=== PATIENT | female | born 1940 | race African-American/Black ===

== ENCOUNTER 2019-07-10 02:37 | Emergency (ER) | payer OTHER ==
[~2019-07-10] VITALS: Ht 170.2 cm; Wt 71.0 kg
[2019-07-10] MEDS ORDERED: FUROSEMIDE 40MG/4ML VIAL IV ONE (03:30)
[2019-07-10] MEDS ORDERED: NITROGLYCERIN OINT 1GM/INCH UDPKT TD ONE (03:30)
[2019-07-10 03:44] LABS: CHLORIDE 109 mEq/L (98-107)
[2019-07-10 03:47] LABS: BASOPHILS % 0.9 % (0.0-2.0); HEMATOCRIT. 45.6 % (36.0-48.0); HEMOGLOBIN. 14.7 g/dL (12.0-16.0); LYMPHOCYTES % 26.8 % (20.0-50.0); MEAN CORPUSCULAR HEMOGLOBIN 27.2 pg (28.0-32.0); MEAN CORPUSCULAR VOLUME 84.6 fL (81.0-99.0); MEAN PLATELET VOLUME 8.2 fl (7.4-10.4); NEUTROPHILS % 64.3 % (40.0-76.0); PLATELET 284 x1000/uL (130-400); RED BLOOD CELL COUNT 5.39 mill/uL (4.2-5.4); RED CELL DISTRIBUTION WIDTH 15.6 % (11.6-14.6)
[2019-07-10 09:18] VITALS: BP 131/113
== END 2019-07-10 09:45 | disposition short-term general hospital (02) ==
LOC: ER 02:37 → EDBD 02:37 → ER 09:45
DX: I11.0 Hypertensive heart disease with heart failure (principal); I50.9 Heart failure, unspecified; I48.91 Unspecified atrial fibrillation; Z79.01 Long term (current) use of anticoagulants; Z88.3 Allergy status to other anti-infective agents; Z88.2 Allergy status to sulfonamides; Z88.8 Allergy status to other drugs, medicaments and biological substances
CPT/HCPCS: 36415; 71045; 80053; 83880; 84484; 85025; 93005; 96374; 99285; C1893; J1940

== ENCOUNTER 2020-10-03 05:35 | Inpatient (IN) | payer MEDICARE, OTHER ==
[~2020-10-03] VITALS: Ht 167.6 cm; Wt 68.0 kg
[2020-10-03] VITALS (54 sets, daily range): BP systolic 104–197; BP diastolic 19–131
[2020-10-03 06:10] LABS: CHLORIDE 105 mEq/L (98-107)
[2020-10-03] MEDS ORDERED: AZITHROMYCIN 500 MG in DEXT 5% WATER 250 ML IV ONE (06:15)
[2020-10-03] MEDS ORDERED: PIPERACILLIN/TAZ 3.375G PREMIX 50 ML IV ONE (06:15)
[2020-10-03] MEDS ORDERED: VANCOMYCIN 1 G PREMIX 200 ML IV ONE (06:15)
[2020-10-03] MEDS ORDERED: FUROSEMIDE 20MG/2ML VIAL IVP ONE (06:15)
[2020-10-03 06:18] LABS: BASOPHILS % 0.7 % (0.0-2.0); EOSINOPHILS % 1.8 % (0.0-5.0); HEMATOCRIT. 43.9 % (36.0-48.0); HEMOGLOBIN. 14.4 g/dL (12.0-16.0); LYMPHOCYTES % 30.2 % (20.0-50.0); MEAN CORPUSCULAR HEMOGLOBIN 28.8 pg (28.0-32.0); MEAN CORPUSCULAR VOLUME 87.5 fL (81.0-99.0); MEAN PLATELET VOLUME 8.1 fl (7.4-10.4); MONOCYTES % 6.8 % (2.0-8.0); NEUTROPHILS % 60.5 % (40.0-76.0); PLATELET 246 x1000/uL (130-400); RED BLOOD CELL COUNT 5.02 mill/uL (4.2-5.4)
[2020-10-03] MEDS ORDERED: DOCUSATE SODIUM 100MG CAPSULE PO PRN (08:45)
[2020-10-03] MEDS ORDERED: NITROGLYCERIN 0.4MG TABLET SL SL PRN (08:45)
[2020-10-03] MEDS ORDERED: ONDANSETRON HCL 4MG/2ML INJ IV PRN (08:45)
[2020-10-03] MEDS ORDERED: ACETAMINOPHEN 325MG TABLET PO PRN (08:45)
[2020-10-03] MEDS ORDERED: TRAMADOL 50MG TABLET PO PRN (08:45)
[2020-10-03] MEDS ORDERED: GUAIFENESIN 200MG/10ML SUGAR FREE UDC PO PRN (08:45)
[2020-10-03] MEDS ORDERED: MAGNESIUM/ALUMINUM HYDROXIDE/SIMETHICONE 30ML UDC PO PRN (08:45)
[2020-10-03] MEDS ORDERED: CLONIDINE 0.1MG TABLET PO PRN (08:45)
[2020-10-03] MEDS ORDERED: IPRATROPIUM/ALBUTEROL 0.5-3(2.5)MG/3ML NEB NEB PRN (08:45)
[2020-10-03] MEDS ORDERED: SPIRONOLACTONE 25MG TABLET PO SCH (09:00)
[2020-10-03] MEDS: FAMOTIDINE 20MG TABLET PO SCH (09:26)
[2020-10-03] MEDS: FUROSEMIDE 40MG/4ML VIAL IVP SCH ×2 (09:26→21:18)
[2020-10-03] MEDS: ZINC SULFATE 220 MG ( 50 ) CAPSULE PO SCH (09:26)
[2020-10-03] MEDS: ASCORBIC ACID 500 MG TABLET PO SCH ×2 (09:26→21:18)
[2020-10-03] MEDS: ASPIRIN 81MG EC TABLET PO SCH (09:26)
[2020-10-03] MEDS: APIXABAN 5 MG TABLET PO SCH ×2 (09:41→21:18)
[2020-10-03] MEDS: CHOLECALCIFEROL (D3) 1000 UNIT TABLET PO SCH (09:42)
[2020-10-03 10:51] LABS: *AMPHETAMINES SCREEN URINE NEGATIVE (NEGATIVE); *BARBITURATES SCREEN URINE NEGATIVE (NEGATIVE); *BENZODIAZEPINES SCREEN URINE NEGATIVE (NEGATIVE); *COCAINE SCREEN URINE NEGATIVE (NEGATIVE); METHADONE URINE SCREEN NEGATIVE (NEGATIVE)
[2020-10-03 10:52] LABS: CANNABINOID URINE SCREEN NEGATIVE (NEGATIVE); OPIATES URINE SCREEN NEGATIVE (NEGATIVE); PHENCYCLIDINE URINE SCREEN NEGATIVE (NEGATIVE)
[2020-10-03] MEDS ORDERED: CEFTRIAXONE 1 G PREMIX 50 ML IV SCH (11:00)
[2020-10-03 11:27] LABS: T4 FREE 0.95 ng/dL (0.76-1.46)
[2020-10-03] MEDS: DILTIAZEM HCL 60MG TABLET PO SCH ×3 (11:32→23:57)
[2020-10-03] MEDS: NITROGLYCERIN OINT 1GM/INCH UDPKT TD SCH ×3 (11:39→21:18)
[2020-10-03 11:42] LABS: FOLIC ACID (FOLATE) SERUM >20 ng/mL ng/mL (>5.38)
[2020-10-03 11:46] LABS: BG BASE EXCESS -1.5 mmol/L (-2.0-2.0); BG DEOXYHEMOGLOBIN 5.9 % (0.0-5.0); BG FRACTION INSPIRED OXYGEN 70; BG HCO3 ACT 22.3 mmol/L (22.0-26.0); BG METHEMOGLOBIN 0.1 % (0.0-1.5); BG OXYGEN SATURATION 94.1 % (92.0-98.5); BG PCO2 35.1 mmHg (35.0-45.0); BG PO2 68.6 mmHg (75.0-100.0); BG SAMPLE SITE RIGHT BRACHIAL; BG TOTAL HEMOGLOBIN 15.4 g/dL (12.0-18.0); BG VENT MODE MASK - BIPAP
[2020-10-03 11:53] LABS: VITAMIN B12 SERUM 730 pg/mL (211-911)
[2020-10-03] MEDS ORDERED: DILTIAZEM HCL 60MG TABLET PO SCH (12:00)
[2020-10-03] MEDS: CEFTRIAXONE 1,000 MG in DEXTROSE 5% WATER 50 ML IV SCH (13:10)
[2020-10-03] MEDS ORDERED: DIGO125T80 MT (16:48)
[2020-10-03] MEDS ORDERED: DONE5TAB26 MT (16:49)
[2020-10-03] MEDS ORDERED: FURO-152 MT (16:50)
[2020-10-03] MEDS ORDERED: LORA-250 MT (16:51)
[2020-10-03] MEDS ORDERED: LOSA50TA41 MT (16:52)
[2020-10-03] MEDS ORDERED: ROSU5TAB MT (16:53)
[2020-10-03] MEDS ORDERED: TRAZ-251 MT (16:54)
[2020-10-03] MEDS: ACETAMINOPHEN 325MG TABLET PO PRN (18:38)
[2020-10-03] MEDS: IPRATROPIUM/ALBUTEROL 0.5-3(2.5)MG/3ML NEB HHN SCH (20:58)
[2020-10-03] MEDS: ZOLPIDEM TARTRATE 5MG TABLET PO PRN (23:57)
[2020-10-04] VITALS (41 sets, daily range): BP systolic 62–153; BP diastolic 40–88
[2020-10-04] MEDS: IPRATROPIUM/ALBUTEROL 0.5-3(2.5)MG/3ML NEB HHN SCH ×4 (02:21→20:27)
[2020-10-04] MEDS: DILTIAZEM HCL 60MG TABLET PO SCH (05:07)
[2020-10-04] MEDS: NITROGLYCERIN OINT 1GM/INCH UDPKT TD SCH ×3 (05:07→21:03)
[2020-10-04 05:14] LABS: CLARITY URINE CLEAR (CLEAR); COLOR URINE YELLOW (YELLOW); KETONES URINE NEGATIVE (NEGATIVE); LEUKOCYTE ESTERASE URINE NEGATIVE (NEGATIVE); NITRITE URINE NEGATIVE (NEGATIVE); OCCULT BLOOD URINE NEGATIVE (NEGATIVE); PH URINE 5.5 (4.5-8.0); PROTEIN URINE 1+ (NEGATIVE); SPECIFIC GRAVITY URINE 1.012 (1.005-1.030); UROBILINOGEN URINE 0.2 E.U./dL (0.2-1.0)
[2020-10-04 05:35] LABS: BASOPHILS % 0.7 % (0.0-2.0); EOSINOPHILS % 0.4 % (0.0-5.0); HEMATOCRIT. 38.8 % (36.0-48.0); HEMOGLOBIN. 12.7 g/dL (12.0-16.0); LYMPHOCYTES % 22.1 % (20.0-50.0); MEAN CORPUSCULAR HEMOGLOBIN 28.3 pg (28.0-32.0); MEAN CORPUSCULAR VOLUME 86.4 fL (81.0-99.0); MEAN PLATELET VOLUME 8.2 fl (7.4-10.4); MONOCYTES % 8.2 % (2.0-8.0); NEUTROPHILS % 68.6 % (40.0-76.0); PLATELET 240 x1000/uL (130-400); RED BLOOD CELL COUNT 4.49 mill/uL (4.2-5.4); RED CELL DISTRIBUTION WIDTH 14.3 % (11.6-14.6)
[2020-10-04 05:44] LABS: CHLORIDE 102 mEq/L (98-107)
[2020-10-04 05:57] LABS: PHOSPHORUS 3.5 mg/dL (2.5-4.9)
[2020-10-04] MEDS ORDERED: AZITHROMYCIN 500 MG in DEXT 5% WATER 250 ML IV SCH (09:00)
[2020-10-04] MEDS: ASCORBIC ACID 500 MG TABLET PO SCH ×2 (09:06→20:26)
[2020-10-04] MEDS: CEFTRIAXONE 1,000 MG in DEXTROSE 5% WATER 50 ML IV SCH (09:06)
[2020-10-04] MEDS: APIXABAN 5 MG TABLET PO SCH ×2 (09:06→20:27)
[2020-10-04] MEDS: ZINC SULFATE 220 MG ( 50 ) CAPSULE PO SCH (09:07)
[2020-10-04] MEDS: ASPIRIN 81MG EC TABLET PO SCH (09:07)
[2020-10-04] MEDS: CHOLECALCIFEROL (D3) 1000 UNIT TABLET PO SCH (09:07)
[2020-10-04] MEDS: FUROSEMIDE 40MG/4ML VIAL IVP SCH ×2 (09:07→20:27)
[2020-10-04] MEDS: FAMOTIDINE 20MG TABLET PO SCH (09:07)
[2020-10-04 09:21] LABS: BG BASE EXCESS 3.9 mmol/L (-2.0-2.0); BG CARBOXYHEMOGLOBIN 0.3 % (0.5-1.5); BG DEOXYHEMOGLOBIN 2.7 % (0.0-5.0); BG FRACTION INSPIRED OXYGEN 44; BG HCO3 ACT 27.2 mmol/L (22.0-26.0); BG METHEMOGLOBIN 0.1 % (0.0-1.5); BG OXYGEN SATURATION 97.3 % (92.0-98.5); BG OXYHEMOGLOBIN 96.9 % (94.0-97.0); BG PCO2 36.2 mmHg (35.0-45.0); BG PH 7.493 (7.350-7.450); BG PO2 89.9 mmHg (75.0-100.0); BG SAMPLE SITE RIGHT RADIAL; BG TOTAL HEMOGLOBIN 12.4 g/dL (12.0-18.0); BG VENT MODE NASAL CANNULA
[2020-10-04] MEDS ORDERED: POTASSIUM CHLORIDE 20MEQ TABLET SR PO NR (10:00)
[2020-10-04] MEDS: AZITHROMYCIN 500 MG in DEXT 5% WATER 250 ML IV SCH (10:07)
[2020-10-04] MEDS ORDERED: LIDOCAINE HCL 1% 20ML VIAL (Pyxis) INJ ONE (11:17)
[2020-10-04] MEDS ORDERED: MAGNESIUM 2 G PREMIX 50 ML IV SCH (12:00)
[2020-10-04] MEDS: ZOLPIDEM TARTRATE 5MG TABLET PO PRN (20:27)
[2020-10-04] MEDS: BUDESONIDE 0.5MG/2ML NEB HHN SCH (20:27)
[2020-10-04] MEDS: ACETAMINOPHEN 325MG TABLET PO PRN (20:27)
[2020-10-05] VITALS (17 sets, daily range): BP systolic 90–142; BP diastolic 41–101
[2020-10-05] MEDS ORDERED: ALBUMIN HUMAN 25GM/100ML (25%) IV SCH
[2020-10-05] MEDS: IPRATROPIUM/ALBUTEROL 0.5-3(2.5)MG/3ML NEB HHN SCH ×4 (02:09→20:32)
[2020-10-05] MEDS: DIGOXIN 500MCG/2ML AMP IV PRN ×2 (06:07→13:26)
[2020-10-05] MEDS: NITROGLYCERIN OINT 1GM/INCH UDPKT TD SCH ×3 (06:15→20:58)
[2020-10-05] MEDS: BUDESONIDE 0.5MG/2ML NEB HHN SCH ×2 (07:48→20:32)
[2020-10-05] MEDS: APIXABAN 5 MG TABLET PO SCH ×2 (08:13→20:56)
[2020-10-05] MEDS: ASPIRIN 81MG EC TABLET PO SCH (08:13)
[2020-10-05] MEDS: ZINC SULFATE 220 MG ( 50 ) CAPSULE PO SCH (08:13)
[2020-10-05] MEDS: FAMOTIDINE 20MG TABLET PO SCH (08:13)
[2020-10-05] MEDS: FUROSEMIDE 40MG/4ML VIAL IVP SCH (08:13)
[2020-10-05] MEDS: CHOLECALCIFEROL (D3) 1000 UNIT TABLET PO SCH (08:13)
[2020-10-05] MEDS: ASCORBIC ACID 500 MG TABLET PO SCH ×2 (08:13→20:57)
[2020-10-05] MEDS ORDERED: METOPROLOL TARTRATE 25MG TABLET PO SCH (08:15)
[2020-10-05] MEDS ORDERED: SPIRONOLACTONE 25MG TABLET PO SCH (09:00)
[2020-10-05] MEDS: DILTIAZEM HCL 30MG TABLET PO SCH ×3 (09:05→18:31)
[2020-10-05 09:46] LABS: BASOPHILS % 0.4 % (0.0-2.0); EOSINOPHILS % 0.2 % (0.0-5.0); HEMATOCRIT. 35.4 % (36.0-48.0); HEMOGLOBIN. 11.6 g/dL (12.0-16.0); LYMPHOCYTES % 11.6 % (20.0-50.0); MEAN CORPUSCULAR VOLUME 85.3 fL (81.0-99.0); MEAN PLATELET VOLUME 7.8 fl (7.4-10.4); MONOCYTES % 5.8 % (2.0-8.0); PLATELET 234 x1000/uL (130-400); RED BLOOD CELL COUNT 4.15 mill/uL (4.2-5.4); RED CELL DISTRIBUTION WIDTH 13.8 % (11.6-14.6)
[2020-10-05 09:51] LABS: CHLORIDE 104 mEq/L (98-107)
[2020-10-05] MEDS: CEFTRIAXONE 1,000 MG in DEXTROSE 5% WATER 50 ML IV SCH (11:37)
[2020-10-05] MEDS: DONEPEZIL HCL 5MG TABLET PO SCH (11:59)
[2020-10-05] MEDS: AZITHROMYCIN 500 MG in DEXT 5% WATER 250 ML IV SCH (12:38)
[2020-10-05] MEDS ORDERED: AMIODARONE HCL 900 MG in DEXT 5% WATER 482 ML IV PRN (13:30)
[2020-10-05] MEDS ORDERED: LORAZEPAM 2MG/ML CPJ IV NR (13:30)
[2020-10-05] MEDS ORDERED: AMIODARONE HCL 150 MG in DEXT 5% WATER 100 ML IV SCH (13:30)
[2020-10-05 13:51] LABS: BG BASE EXCESS 2.1 mmol/L (-2.0-2.0); BG CARBOXYHEMOGLOBIN 0.2 % (0.5-1.5); BG DEOXYHEMOGLOBIN 11.7 % (0.0-5.0); BG HCO3 ACT 25.7 mmol/L (22.0-26.0); BG METHEMOGLOBIN 0.1 % (0.0-1.5); BG OXYGEN SATURATION 88.3 % (92.0-98.5); BG PCO2 36.6 mmHg (35.0-45.0); BG PH 7.464 (7.350-7.450); BG PO2 52.8 mmHg (75.0-100.0); BG SAMPLE SITE LEFT BRACHIAL; BG TOTAL HEMOGLOBIN 13.7 g/dL (12.0-18.0); BG VENT MODE ROOM AIR
[2020-10-05] MEDS ORDERED: FUROSEMIDE 40MG/4ML VIAL IVP SCH (18:00)
[2020-10-05] MEDS: DIGOXIN 500MCG/2ML AMP IV SCH (18:31)
[2020-10-05] MEDS: FUROSEMIDE 40MG TABLET PO SCH (18:31)
[2020-10-05] MEDS: BLOOD SUGAR DIAGNOSTIC STRIP TEST SCH ×2 (18:46→21:02)
[2020-10-05] MEDS ORDERED: IOHEXOL-350 100 ML BOTTLE ONE (20:15)
[2020-10-05] MEDS: LORAZEPAM 1MG TABLET PO SCH (20:56)
[2020-10-05] MEDS: TRAZODONE HCL 50MG TABLET PO SCH (20:56)
[2020-10-06] VITALS (12 sets, daily range): BP systolic 91–129; BP diastolic 41–90
[2020-10-06] MEDS: ZOLPIDEM TARTRATE 5MG TABLET PO PRN (00:28)
[2020-10-06] MEDS: DILTIAZEM HCL 30MG TABLET PO SCH ×3 (00:55→12:00)
[2020-10-06] MEDS: IPRATROPIUM/ALBUTEROL 0.5-3(2.5)MG/3ML NEB HHN SCH ×4 (02:59→20:36)
[2020-10-06 07:13] LABS: HEMATOCRIT 45.9 % (36.0-48.0); HEMOGLOBIN 15.4 g/dL (12.0-16.0); MEAN CORPUSCULAR HEMOGLOBIN 28.6 pg (28.0-32.0); MEAN CORPUSCULAR VOLUME 85.3 fL (81.0-99.0); PLATELET 293 x1000/uL (130-400); RED BLOOD CELL COUNT 5.38 mill/uL (4.2-5.4)
[2020-10-06 07:14] LABS: CHLORIDE 97 mEq/L (98-107)
[2020-10-06] MEDS: FUROSEMIDE 40MG TABLET PO SCH (07:17)
[2020-10-06] MEDS: NITROGLYCERIN OINT 1GM/INCH UDPKT TD SCH ×3 (07:18→21:34)
[2020-10-06] MEDS: BLOOD SUGAR DIAGNOSTIC STRIP TEST SCH ×4 (07:30→20:28)
[2020-10-06 07:40] LABS: DIGOXIN 1.4 ng/mL (0.9-2.0)
[2020-10-06] MEDS: BUDESONIDE 0.5MG/2ML NEB HHN SCH ×2 (09:09→20:37)
[2020-10-06] MEDS: LORAZEPAM 1MG TABLET PO SCH ×2 (09:09→20:58)
[2020-10-06] MEDS: AZITHROMYCIN 500 MG in DEXT 5% WATER 250 ML IV SCH (09:09)
[2020-10-06] MEDS: ASCORBIC ACID 500 MG TABLET PO SCH ×2 (09:09→20:58)
[2020-10-06] MEDS: APIXABAN 5 MG TABLET PO SCH ×2 (09:09→20:58)
[2020-10-06] MEDS: CEFTRIAXONE 1,000 MG in DEXTROSE 5% WATER 50 ML IV SCH (09:09)
[2020-10-06] MEDS: DONEPEZIL HCL 5MG TABLET PO SCH (09:09)
[2020-10-06] MEDS: CHOLECALCIFEROL (D3) 1000 UNIT TABLET PO SCH (09:09)
[2020-10-06] MEDS: ZINC SULFATE 220 MG ( 50 ) CAPSULE PO SCH (09:09)
[2020-10-06] MEDS: FAMOTIDINE 20MG TABLET PO SCH (09:09)
[2020-10-06] MEDS: ASPIRIN 81MG EC TABLET PO SCH (09:10)
[2020-10-06] MEDS ORDERED: POTASSIUM CHLORIDE 20MEQ/PACKET PO SCH (14:00)
[2020-10-06] MEDS: AMIODARONE HCL 200 MG TABLET PO SCH ×2 (14:26→20:59)
[2020-10-06] MEDS ORDERED: KCL 20MEQ/100ML PREMIX 100 ML IV SCH (15:00)
[2020-10-06] MEDS: DIGOXIN 500MCG/2ML AMP IV SCH (17:50)
[2020-10-06] MEDS ORDERED: POTASSIUM CHLORIDE 20MEQ TABLET SR PO NR (20:00)
[2020-10-06] MEDS: TRAZODONE HCL 50MG TABLET PO SCH (20:58)
[2020-10-07] VITALS (11 sets, daily range): BP systolic 65–165; BP diastolic 41–99
[2020-10-07] MEDS: IPRATROPIUM/ALBUTEROL 0.5-3(2.5)MG/3ML NEB HHN SCH ×4 (01:30→19:47)
[2020-10-07] MEDS: AMIODARONE HCL 200 MG TABLET PO SCH ×3 (06:07→21:13)
[2020-10-07] MEDS: NITROGLYCERIN OINT 1GM/INCH UDPKT TD SCH ×3 (06:07→21:15)
[2020-10-07] MEDS: DIGOXIN 500MCG/2ML AMP IV PRN (06:08)
[2020-10-07 07:25] LABS: BG BASE EXCESS -3.5 mmol/L (-2.0-2.0); BG CARBOXYHEMOGLOBIN 1.1 % (0.5-1.5); BG DEOXYHEMOGLOBIN 4.2 % (0.0-5.0); BG HCO3 ACT 17.2 mmol/L (22.0-26.0); BG METHEMOGLOBIN 0.3 % (0.0-1.5); BG OXYGEN SATURATION 95.7 % (92.0-98.5); BG OXYHEMOGLOBIN 94.4 % (94.0-97.0); BG PCO2 22.3 mmHg (35.0-45.0); BG PH 7.506 (7.350-7.450); BG PO2 72.9 mmHg (75.0-100.0); BG SAMPLE SITE RIGHT BRACHIAL; BG TOTAL HEMOGLOBIN 15.3 g/dL (12.0-18.0); BG VENT MODE ROOM AIR
[2020-10-07] MEDS: DILTIAZEM HCL 30MG TABLET PO SCH ×4 (09:00→21:50)
[2020-10-07] MEDS: BUDESONIDE 0.5MG/2ML NEB HHN SCH (09:02)
[2020-10-07] MEDS: AZITHROMYCIN 500 MG in DEXT 5% WATER 250 ML IV SCH (09:26)
[2020-10-07] MEDS: ASCORBIC ACID 500 MG TABLET PO SCH ×2 (09:27→21:14)
[2020-10-07] MEDS: ZINC SULFATE 220 MG ( 50 ) CAPSULE PO SCH (09:27)
[2020-10-07] MEDS: ASPIRIN 81MG EC TABLET PO SCH (09:27)
[2020-10-07] MEDS: CHOLECALCIFEROL (D3) 1000 UNIT TABLET PO SCH (09:27)
[2020-10-07] MEDS: DONEPEZIL HCL 5MG TABLET PO SCH (09:27)
[2020-10-07] MEDS: EZETIMIBE 10MG TABLET PO SCH (09:27)
[2020-10-07] MEDS: APIXABAN 5 MG TABLET PO SCH (09:27)
[2020-10-07] MEDS: LORAZEPAM 1MG TABLET PO SCH ×2 (09:28→21:14)
[2020-10-07] MEDS: FAMOTIDINE 20MG TABLET PO SCH (09:28)
[2020-10-07 11:33] LABS: HEMOGLOBIN 14.3 g/dL (12.0-16.0); MEAN CORPUSCULAR HEMOGLOBIN 28.6 pg (28.0-32.0); MEAN CORPUSCULAR VOLUME 88.3 fL (81.0-99.0); PLATELET 277 x1000/uL (130-400); RED BLOOD CELL COUNT 4.98 mill/uL (4.2-5.4); RED CELL DISTRIBUTION WIDTH 14.1 % (11.6-14.6)
[2020-10-07 11:49] LABS: PHOSPHORUS 2.2 mg/dL (2.5-4.9)
[2020-10-07] MEDS ORDERED: SODIUM CHLORIDE 0.9% 250 ML IV ONE ×2 (13:30→14:15)
[2020-10-07] MEDS: DEXT 5%/0.9% NACL 1,000 ML IV SCH (18:08)
[2020-10-07] MEDS: TRAZODONE HCL 50MG TABLET PO SCH (21:13)
[2020-10-07] MEDS: APIXABAN 2.5 MG TABLET PO SCH (21:14)
[2020-10-07] MEDS: DILTIAZEM HCL 5MG/ML 5ML VIAL IV PRN (21:17)
[2020-10-08] VITALS (7 sets, daily range): BP systolic 88–157; BP diastolic 45–134
[2020-10-08] MEDS: DILTIAZEM HCL 5MG/ML 5ML VIAL IV PRN (01:13)
[2020-10-08] MEDS: IPRATROPIUM/ALBUTEROL 0.5-3(2.5)MG/3ML NEB HHN SCH ×4 (01:50→21:05)
[2020-10-08] MEDS: NITROGLYCERIN OINT 1GM/INCH UDPKT TD SCH ×2 (06:00→13:09)
[2020-10-08] MEDS: AMIODARONE HCL 200 MG TABLET PO SCH ×2 (06:33→13:08)
[2020-10-08 07:56] LABS: BG BASE EXCESS -1.9 mmol/L (-2.0-2.0); BG CARBOXYHEMOGLOBIN 0.1 % (0.5-1.5); BG DEOXYHEMOGLOBIN 4.8 % (0.0-5.0); BG FRACTION INSPIRED OXYGEN 21; BG HCO3 ACT 21.5 mmol/L (22.0-26.0); BG METHEMOGLOBIN 0.5 % (0.0-1.5); BG OXYGEN SATURATION 95.2 % (92.0-98.5); BG OXYHEMOGLOBIN 94.6 % (94.0-97.0); BG PCO2 32.8 mmHg (35.0-45.0); BG PH 7.434 (7.350-7.450); BG PO2 72.9 mmHg (75.0-100.0); BG SAMPLE SITE RIGHT BRACHIAL; BG TOTAL HEMOGLOBIN 14.3 g/dL (12.0-18.0); BG VENT MODE ROOM AIR
[2020-10-08] MEDS: APIXABAN 2.5 MG TABLET PO SCH ×2 (09:00→20:53)
[2020-10-08] MEDS: FAMOTIDINE 20MG TABLET PO SCH (09:25)
[2020-10-08] MEDS: EZETIMIBE 10MG TABLET PO SCH (09:25)
[2020-10-08] MEDS: ASPIRIN 81MG EC TABLET PO SCH (09:25)
[2020-10-08] MEDS: DONEPEZIL HCL 5MG TABLET PO SCH (09:26)
[2020-10-08] MEDS: CHOLECALCIFEROL (D3) 1000 UNIT TABLET PO SCH (09:26)
[2020-10-08] MEDS: ZINC SULFATE 220 MG ( 50 ) CAPSULE PO SCH (09:26)
[2020-10-08] MEDS: ASCORBIC ACID 500 MG TABLET PO SCH ×2 (09:27→20:53)
[2020-10-08] MEDS: LORAZEPAM 1MG TABLET PO SCH ×2 (09:27→20:53)
[2020-10-08 10:56] LABS: BASOPHILS % 1.1 % (0.0-2.0); EOSINOPHILS % 0.3 % (0.0-5.0); HEMATOCRIT. 39.8 % (36.0-48.0); HEMOGLOBIN. 13.1 g/dL (12.0-16.0); LYMPHOCYTES % 8.7 % (20.0-50.0); MEAN CORPUSCULAR HEMOGLOBIN 28.2 pg (28.0-32.0); MEAN CORPUSCULAR VOLUME 85.6 fL (81.0-99.0); MEAN PLATELET VOLUME 8.2 fl (7.4-10.4); MONOCYTES % 11.6 % (2.0-8.0); NEUTROPHILS % 78.3 % (40.0-76.0); PLATELET 300 x1000/uL (130-400); RED BLOOD CELL COUNT 4.65 mill/uL (4.2-5.4); RED CELL DISTRIBUTION WIDTH 13.8 % (11.6-14.6)
[2020-10-08] MEDS: DEXT 5%/0.9% NACL 1,000 ML IV SCH (13:09)
[2020-10-08] MEDS: DILTIAZEM HCL 30MG TABLET PO SCH (13:09)
[2020-10-08] MEDS ORDERED: DILTIAZEM HCL 5MG/ML 5ML VIAL IV NR (15:00)
[2020-10-08] MEDS: ACETAMINOPHEN 325MG TABLET PO PRN (17:13)
[2020-10-08] MEDS ORDERED: SODIUM CHLORIDE 0.9% 1000ML BAG (SEPSIS BOLUS) IV ONE (18:30)
[2020-10-08] MEDS ORDERED: ALBUMIN HUMAN 25GM/100ML (25%) IV NR (19:15)
[2020-10-08] MEDS ORDERED: AMIODARONE HCL 150 MG in DEXT 5% WATER 100 ML IV NR (19:30)
[2020-10-08] MEDS: TRAZODONE HCL 50MG TABLET PO SCH (20:53)
== END 2020-10-08 21:30 | disposition short-term general hospital (02) | DRG 280 ==
LOC: ER 05:56 → MICUSO 07:24 → ENRESERV 10:19 → 5EST 10-05 02:40
PROVIDERS: ADMIT Internal Medicine; ATTEND Internal Medicine
PROC: 5A09357 Assistance with Respiratory Ventilation, Less than 24 Consecutive Hours, Continuous Positive Airway Pressure (ICD-10-PCS; 2020-10-03)
PROC: 02HV33Z Insertion of Infusion Device into Superior Vena Cava, Percutaneous Approach (ICD-10-PCS; principal; 2020-10-04)
PROC: B548ZZA Ultrasonography of Superior Vena Cava, Guidance (ICD-10-PCS; 2020-10-04)
PROC: 5A09357 Assistance with Respiratory Ventilation, Less than 24 Consecutive Hours, Continuous Positive Airway Pressure (ICD-10-PCS; 2020-10-04)
DX: I21.4 Non-ST elevation (NSTEMI) myocardial infarction (principal); J96.21 Acute and chronic respiratory failure with hypoxia; G92 Toxic encephalopathy; I50.43 Acute on chronic combined systolic (congestive) and diastolic (congestive) heart failure; I16.1 Hypertensive emergency; E87.1 Hypo-osmolality and hyponatremia; E87.2 Acidosis; N17.9 Acute kidney failure, unspecified; I11.0 Hypertensive heart disease with heart failure; I27.20 Pulmonary hypertension, unspecified; E87.6 Hypokalemia; I48.0 Paroxysmal atrial fibrillation; E78.5 Hyperlipidemia, unspecified; F03.90 Unspecified dementia, unspecified severity, without behavioral disturbance, psychotic disturbance, mood disturbance, and anxiety; J44.9 Chronic obstructive pulmonary disease, unspecified; E78.00 Pure hypercholesterolemia, unspecified; Z20.822 Contact with and (suspected) exposure to COVID-19; I65.22 Occlusion and stenosis of left carotid artery; I70.8 Atherosclerosis of other arteries; Z88.8 Allergy status to other drugs, medicaments and biological substances; Z87.891 Personal history of nicotine dependence; Z88.1 Allergy status to other antibiotic agents; Z88.2 Allergy status to sulfonamides; Z79.899 Other long term (current) drug therapy
CPT/HCPCS: 36415; 36600; 70496; 70498; 71045; 71250; 76856; 76937; 80048; 80053; 80061; 80162; 80305; 81003; 82375; 82550; 82553; 82607; 82746; 82805; 82962; 83036; 83540; 83550; 83605; 83615; 83735; 83880; 84100; 84145; 84439; 84443; 84484; 85025; 85027; 85379; 85384; 87426; 87493; 92610; 93005; 93306; 93970; 94640; 94660; 97161; 97166; 97530; 97535; 99291; A6261; C1725; J0282; J0456; J0696; J1160; J1940; J2060; J2543; J3370; J3475; J3480; J3490; J7040; J7042; J7060; J7626; P9047; Q9967; A4315